=== PATIENT | female | born 1965 | race Caucasian/White ===

== ENCOUNTER → 2016-08-25 | Outpatient (CLI) | payer OTHER ==
[~2016-08-25] MED LIST: FERR1TAB23 PO; OXYC-57 PO; [UNRECOGNIZED DRUG - OTHER] PO
--- NOTE | 2016-08-25 16:25 | MAMMOGRAPHY REPORT ---
BILATERAL DIGITAL DIAGNOSTIC MAMMOGRAM TOMOSYNTHESIS WITH CAD: 08/25/2016 CLINICAL HISTORY: 50-year-old woman with a history of prior benign stereotactic biopsy of a mass in the 6:00 posterior left breast. She presents for follow-up to ensure stability of another circumscr ibed benign-appearing mass more laterally within the left breast, and also of nodularity in the far posterior right breast, along the posterior nipple line on the CC view. TECHNIQUE: Bilateral breast tomosynthesis in addition to standard 2D mammography was performed. A s pot compression right CC 2-D and tomosynthesis image was also obtained. Current study was also eval uated with a Computer Aided Detection (CAD) system. COMPARISON: Comparison is made to exams dated: 02/25/2016 ultrasound, 02/25/2016 mammogram, 6 mammogram, 03/09/2015 mammogram, 03/09/2015 stereotactic biopsy, and 03/01/2015 mammogram - [facility]. BREAST COMPOSITION: The tissue of both breasts is heterogeneously dense, which may obscure small ma sses. FINDINGS: There is a stable metallic biopsy marker associated with a stable circumscribed 10 x 7 mm mass in the 6:00 posterior left breast. A second circumscribed oval 5.2 x 5.9 mm mass in the appro ximate 3:00 middle one third of the left breast has not significantly changed in size dating back to 09/24/2015. No new suspicious mass, architectural distortion or suspicious calcifications are seen in the left breast. There is decreased nodularity in the far posterior right breast on the CC view. This is confirmed b y an additional spot compression view in the area, which includes increased visualization of the pec toralis muscle. Overall, no new suspicious mass, architectural distortion or new suspicious calcifi cations are identified in the right breast. IMPRESSION: ACR-BI-RADS CATEGORY 3: PROBABLY BENIGN 1. Stable size and appearance of benign-appearing circumscribed masses in the left breast. The mas s in the 6:00 axes was previously biopsied and yielded benign pathology. Overall, no mammographic e vidence of malignancy in the left breast. 2. Decreased nodularity in the far posterior right breast, along the posterior nipple line on the C C view, thought to project in the 12:00 axis, without definite mammographic evidence of malignancy i n the right breast. Would recommend bilateral diagnostic mammograms in 6 months to ensure at least 2 years of stability of the circumscribed masses within the left breast and for routine mammography of the right breast. Approximately 10% of breast cancers are not detected with mammography. A negative mammographic repor t should not delay biopsy if a clinically suggestive mass is present. Kerrie Scott M.D. ay/:08/25/2016 12:43:13 Roofing Machine Operator: Shellie BERNAL(R)([place]), [facility] letter sent: Follow Up Recommended 3 BI-RADS Code: ACR-BI-RADS Category 3: Probably Benign
== END | disposition home or self-care (01) ==
LOC: C.MAMM 08:57
PROVIDERS: ATTEND Family Medicine
DX: N63 Unspecified lump in breast (principal); R92.8 Other abnormal and inconclusive findings on diagnostic imaging of breast

== ENCOUNTER → 2016-10-23 | Outpatient (CLI) | payer OTHER ==
[2016-10-23 12:25] LABS: BASO % 1.2 %; COMPLETE YES; EOS % 7.4 %; HEMATOCRIT 29.1 % (37-47); IG% 0.4 %; LYMPH % 28.6 %; MEAN CELL VOLUME 86.6 fL (80-100); MEAN CORPUSCULAR HEMOGLOBIN 27.4 pg (25-34); MEAN CORPUSCULAR HGB CONC 31.6 g/dl (32-36); MEAN PLATELET VOLUME 8.5 fL (7.4-10.4); MONO % 7.5 %; NEUT % 54.9 %; PLATELET COUNT 311 K/uL (130-400); RED BLOOD COUNT 3.36 M/uL (4.2-5.4)
[2016-10-23 13:34] LABS: CHOLESTEROL/HDL RATIO 4.1
== END ==
LOC: C.LABPBG 09:45
PROVIDERS: ATTEND Family Medicine
DX: E78.5 Hyperlipidemia, unspecified (principal); N92.0 Excessive and frequent menstruation with regular cycle

== ENCOUNTER → 2017-02-24 | Outpatient (CLI) | payer OTHER ==
[2017-02-24 17:30] LABS: BASO % 0.5 %; BASO ABS # 0.04 K/uL (0-0.2); COMPLETE YES; EOS % 0.4 %; HEMATOCRIT 37.4 % (37-47); IG% 0.2 %; LYMPH % 16.5 %; LYMPH ABS # 1.39 K/uL (1.2-3.4); MEAN CELL VOLUME 82.7 fL (80-100); MEAN CORPUSCULAR HEMOGLOBIN 27.2 pg (25-34); MEAN CORPUSCULAR HGB CONC 32.9 g/dl (32-36); MONO % 10.5 %; NEUT % 71.9 %; PLATELET COUNT 280 K/uL (130-400); RED BLOOD COUNT 4.52 M/uL (4.2-5.4)
== END | disposition home or self-care (01) ==
LOC: C.LABPBG 12:48
PROVIDERS: ATTEND Family Medicine
DX: D64.9 Anemia, unspecified (principal)

== ENCOUNTER → 2017-02-24 | Outpatient (CLI) | payer OTHER ==
--- NOTE | 2017-02-24 14:24 | MAMMOGRAPHY REPORT ---
BILATERAL DIGITAL DIAGNOSTIC MAMMOGRAM TOMOSYNTHESIS WITH CAD: 02/24/2017 CLINICAL HISTORY: Follow-up of benign-appearing left breast masses, and right breast asymmetry. TECHNIQUE: Breast tomosynthesis in addition to standard 2D mammography was performed. Current study was also evaluated with a Computer Aided Detection (CAD) system. COMPARISON: Comparison is made to exams dated: 08/25/2016 mammogram, 02/25/2016 ultrasound, 6 mammogram, 09/24/2015 ultrasound, 09/24/2015 mammogram, and 03/09/2015 mammogram - [facility]. BREAST COMPOSITION: The tissue of both breasts is heterogeneously dense, which may obscure small mas ses. FINDINGS: There is a stable metallic biopsy marker associated with a benign-appearing circumscribed o anatoliy mass measuring 11 x 5.6 mm. This has not significantly changed in size compared to prior mammogr ams and also yielded benign pathology results. A second round circumscribed mass in the lateral left breast on the CC view has decreased in size, currently measuring 4.9 mm in diameter, confirming cruz gnity. Given the stability of the biopsied mass and benign pathology results this is considered cruz gn as well and no further close follow-up is needed at this time. No other new suspicious mass, foca l area of distortion, suspicious calcifications or asymmetry is seen in the left breast. The mammographic appearance of the right breast is stable compared to prior mammograms. An asymmetry in the far posterior breast along the posterior nipple line on the CC view is decreased in conspicui ty. No new suspicious mass, architectural distortion or cluster of microcalcifications is seen. IMPRESSION: ACR BI-RADS CATEGORY 2: BENIGN There are benign masses in the left breast, one of which was previously biopsied and yielded benign p athology results, and the other of which has decreased in size, confirming benignity. No further bar se follow-up is needed in the left breast. Decreased prominence of an asymmetry in the 12:00 posteri or right breast, also confirming benignity. Overall, there is no mammographic evidence of malignancy bilaterally. Recommend routine screening tomosynthesis mammography in one year. Approximately 10% of breast cancers are not detected with mammography. A negative mammographic report should not delay biopsy if a clinically suggestive mass is present. Kerrie Scott M.D. ay/:02/24/2017 09:42:23 Gas Station Operator: Autumn Anand, [facility] letter sent: Normal 1/2 BI-RADS Code: ACR BI-RADS Category 2: Benign
== END | disposition home or self-care (01) ==
LOC: C.MAMM 09:00
PROVIDERS: ATTEND Family Medicine
DX: N63.0 Unspecified lump in unspecified breast (principal); R92.8 Other abnormal and inconclusive findings on diagnostic imaging of breast

== ENCOUNTER → 2017-03-16 | Outpatient (CLI) | payer OTHER ==
[2017-03-16 17:48] LABS: HEMATOCRIT 33.2 % (37-47); MEAN CELL VOLUME 85.6 fL (80-100); MEAN CORPUSCULAR HEMOGLOBIN 27.6 pg (25-34); MEAN CORPUSCULAR HGB CONC 32.2 g/dl (32-36); MEAN PLATELET VOLUME 8.9 fL (7.4-10.4); PLATELET COUNT 312 K/uL (130-400); RED BLOOD COUNT 3.88 M/uL (4.2-5.4); WHITE BLOOD COUNT 12.78 K/uL (4.8-10.8)
== END | disposition home or self-care (01) ==
LOC: C.LAB1850 15:41
PROVIDERS: ATTEND Obstetrics & Gynecology
DX: N83.9 Noninflammatory disorder of ovary, fallopian tube and broad ligament, unspecified (principal)

== ENCOUNTER → 2017-03-16 | Outpatient (CLI) | payer OTHER | END | disposition home or self-care (01) | LOC: C.PATHSPEC 16:53 | PROVIDERS: ATTEND Obstetrics & Gynecology | DX: N94.89 Other specified conditions associated with female genital organs and menstrual cycle (principal) ==

== ENCOUNTER 2017-04-20 08:38 | Day surgery (SDC) | payer OTHER ==
[2017-03-30 12:50] VITALS: BMI 26.0
--- NOTE | 2017-03-30 13:22 | PAT Medication Instructions ---
Service Date Mar 30, 2017. Current Home Medication List Ferrous Sulfate (Iron), 325 MG PO HS [Shakology], 1 DOSE PO QAM Medication Instructions For Your Scheduled Surgery - Hold the following medications the morning of surgery: [Shakology], 1 DOSE PO QAM - Take the following medications as scheduled the night before surgery: Ferrous Sulfate (Iron), 325 MG PO HS OTHERWISE NOTHING TO EAT OR DRINK AFTER MIDNIGHT If you have any questions please call us at [phone] or [phone] or [phone]
[~2017-04-20] VITALS: Ht 149.9 cm; Wt 57.6 kg
[~2017-04-20 08:38] MED LIST changes: +CEFAZOLIN 2000MG IV PUSH 10 ML IV SCH; +LACTATED RINGER'S 1000ML 1,000 ML IV SCH; -OXYC-57 PO
[2017-04-20] MEDS ORDERED: SCOPOLAMINE 1.5 MG TDSY TD ONE (09:04)
[2017-04-20 09:12] VITALS: BP 135/74; PULSE 76; TEMP 37; O2SAT 99; Ht 149.9 cm; Wt 57.6 kg
[2017-04-20] MEDS ORDERED: ATROPINE SULFATE 0.1 MG/ML 5ML SYR IV PRN (09:30)
[2017-04-20] MEDS ORDERED: EpHEDrine SULFATE INJ 50 MG/ML AMP IV PRN (09:30)
[2017-04-20] MEDS ORDERED: ONDANSETRON INJ 2 MG/ML 2 ML VIAL IV PRN (09:30)
[2017-04-20] MEDS ORDERED: FENTANYL CITRATE INJ 50 MCG/1 ML 2 ML VIAL IV PRN (09:30)
[2017-04-20] MEDS ORDERED: PROMETHAZINE HCL INJ 12.5 MG in SODIUM CHLORIDE 0.9% 50ML 50 ML IV PRN (09:30)
[2017-04-20] MEDS ORDERED: HYDROmorphone INJ 1 MG/ML SYR IV PRN (09:30)
[2017-04-20] MEDS ORDERED: BUPIVACAINE 0.5 % 5 MG/1 ML MPF 30ML VIAL ONE (09:37)
[2017-04-20] MEDS ORDERED: ACETAMINOPHEN 1000 MG/100 ML IV IV ONE (10:00)
[2017-04-20] MEDS ORDERED: LIDOCAINE HCL 2% 2 ML VIAL (20MG/ML) ONE (10:00)
[2017-04-20] MEDS ORDERED: PROPOFOL IV EMULSION 10 MG/ML 20 ML VIAL IV ONE (10:00)
[2017-04-20] MEDS ORDERED: FENTANYL CITRATE INJ 50 MCG/1 ML 2 ML VIAL ONE ×3 (10:01→12:42)
[2017-04-20] MEDS ORDERED: MIDAZOLAM HCL 1 MG/ML 2ML VIAL ONE ×2 (10:01→11:38)
--- NOTE | 2017-04-20 11:00 | History & Physical Bridge Note ---
H&P Re-Evaluation Bridge Note: I have examined the patient, reviewed the History & Physical and in the interval since the performance of the History & Physical I have noted the following changes of clinical significance: No changes noted
--- NOTE | 2017-04-20 11:01 | Discharge Instructions ---
Discharge Instructions Date of Service Apr 20, 2017. Visit Reason for Visit: Endometrial Mass, Right Ovarian Mass Discharge Discharge Diagnosis / Problem: Endometrial and ovarian masses Discharge Goals Goal(s): Specific goals Activity Recommendations Activity Limitations: per Instructions/Follow-up section Anesthesia . Post Anesthesia Instructions: If you have had General Anesthesia or IV Sedation: * Do not drive today. * Resume driving when surgeon permits. * Do not make important decisions or sign legal documents today. * Call surgeon for: 1. Temperature elevations greater than 101 degrees F. 2. Uncontrollable pain. 3. Excessive bleeding. 4. Persistent nausea and vomiting. 5. Medication intolerance (nausea, vomiting or rash). * For nausea and vomiting use only clear liquids such as: tea, soda, bouillon until nausea subsides, then gradually increase diet as tolerated. * If you have any concerns or questions, call your surgeon's office. If physician is unavailable and it is an emergency, call 911 or go to the nearest emergency room. . Instructions / Follow-Up Instructions / Follow-Up ACTIVITY RECOMMENDATIONS: * Rest the first 2-3 days. You should be back to your normal activity levels by day 3. * No heavy lifting for 2 weeks. * No intercourse, tampons or douching for 1-2 weeks. * You may shower the next day. * Do not drive anytime that you are taking narcotic pain medicines. RETURN TO SCHOOL/WORK: * May return to school or work after 2-3 days. DIET: Nausea may occur in the immediate post-operative period. If so, take clear liquids such as tea, bouillon, apple juice until all nausea has subsided, then resume usual diet. MEDICATIONS: Resume previous medications unless instructed otherwise by your surgeon. Ibuprofen 200mg 2-3 tablets every 4-6 hours as needed -- OR -- Aleve 2 tablets every 8-12 hours as needed for post-operative discomfort Medications are over the counter. Tylenol may be used if above medications are contraindicated or not preferred. Medication should be taken with food or milk. Do not take on an empty stomach. SPECIAL CARE INSTRUCTIONS: * Check temperature twice daily for one week. report any elevation over 101 degrees. * You may experience some vagina spotting and/or bleeding. This is normal for 1 -2 weeks and should not be heavier than a normal period. If it is unusual in amount, call your physician. * Post-operative discomfort may consist of a sore throat, a "bloated" feeling and pain in the shoulders. these are normal symptoms, which usually only last for 2-3 days. * Remove band-aids tomorrow and shower. There is no need to replace band-aids unless there is drainage or discomfort. FOLLOW UP VISIT: Call your doctor's office for a post-operative 2 week visit if not already scheduled. ACTIVITY RECOMMENDATIONS: * Avoid tampons, douching, hot tubs, pools, and intercourse until bleeding has stopped. * May shower as usual. * No strenuous activity for 24-48 hours. After 24-48 hours, you may do anything you feel like doing (driving and sports are okay). SPECIAL CARE INSTRUCTIONS: Special Diet: * Mild nausea may occur in the immediate post-operative period. * Take clear liquids such as tea, cola or bouillon until all nausea has subsided; you may then resume your normal diet. Special Care: * Light bleeding and vaginal spotting can last from a few days to 3-4 weeks. Call your doctor if bleeding becomes heavier than the heaviest part of your period. * Check your temperature twice a day for one week. If it goes above 100.4 degrees Fahrenheit (38.0 Celsius), notify your doctor. * Call your doctor's office for an appointment for 6 weeks after your surgery. FOLLOW-UP VISIT: Call your doctor's office for an appointment for 6 weeks after your surgery. Diet Recommendations Recommended Home Diet: resume previous diet Pending Studies Studies pending at discharge: no Medical Emergencies . Who to Call and When: Medical Emergencies: If at any time you feel your situation is an emergency, please call 911 immediately. . Non-Emergent Contact Non-Emergency issues call your: Primary Care Provider . . "Provider Documentation" section prepared by Katalina Miranda. . [place] Drug Monitoring Program Search Results: no issues identified
[2017-04-20] MEDS ORDERED: OXYC-57 PO (11:02)
[2017-04-20] MEDS ORDERED: DEXAMETHASONE SOD INJ 4 MG/ML VIAL ONE (12:11)
[2017-04-20] MEDS ORDERED: ONDANSETRON INJ 2 MG/ML 2 ML VIAL ONE (12:11)
[2017-04-20] MEDS ORDERED: EpHEDrine SULFATE 50MG/5ML SYR ONE (12:11)
[2017-04-20] MEDS ORDERED: KETOROLAC TROMETHAMINE 30 MG/ML VIAL ONE (12:25)
[2017-04-20] MEDS ORDERED: ROCURONIUM BROMIDE 10 MG/ML 5 ML VIAL IV ONE (12:28)
[2017-04-20] MEDS ORDERED: GLYCOPYRROLATE INJ 0.2 MG/ML VIAL ONE (12:43)
[2017-04-20] MEDS ORDERED: NEOSTIGMINE METHYLSULFATE 5 MG/5 ML SYR ONE (12:43)
--- NOTE | 2017-04-20 13:39 | [facility] Post Operative Brief Note ---
Immediate Operative Summary Operative Date Apr 20, 2017. Pre-Operative Diagnosis Abnormal uterine bleeding, polypoid endometrial mass, right ovarian mass. Post-Operative Diagnosis Same as preop. Procedure(s) Performed Laparoscopy, Right Salpingo-Oophorectomy with use of DaVinci, Hysteroscopy, Dilatation and curretage complicated by uterine perforation, and diagnostic laparoscopy. Surgeon Dr. Miranda Technical Manager Surgeon(s) None Estimated Blood Loss 30 ml Findings Pelvic organs: Right ovary grossly dilated. Bilateral tubes, L ovary, and uterus WNL. Tiny white implants on peritoneum likely representing endometriosis. Normal appendix and liver edge with gallbladder tip also visualized. Contents of right ovary suggestive of dermoid (sebum and hair). Endometrial cavity: With multiple polypoid projections filling the cavity and one predominant polyp seen towards the R side. Ostia seen bilaterally. Sound to 9cm. Perforation at end of curettage. Deficit 30cc NSS. Repeat view of pelvis: punctate perforation of uterine fundus towards L posterior. Minimal active bleeding after suction/irrigation and observation. Specimens A: Right tube and ovary. B: Endometrial currettings. Complication(s) Uterine perforation Disposition Recovery Room / PACU
--- NOTE | 2017-04-20 14:07 | Anesthesiology Progress Note ---
Anesthesia Post Op Note Date & Time Apr 20, 2017 at 14:07 Vital Signs Pain Intensity: 3 Vital Signs Past 12 Hours Date Time Temp Pulse Resp B/P (MAP) Pulse Ox O2 Delivery O2 Flow Rate FiO2 04/20/17 14:00 80 15 112/65 100 Room Air 04/20/17 13:50 76 13 115/75 100 Oxymask 10 04/20/17 13:40 85 23 85/75 100 Oxymask 10 04/20/17 13:34 36.4 87 15 123/74 100 Oxymask 10 04/20/17 09:12 37.0 76 18 135/74 (94) 99 Room Air Notes Mental Status: alert / awake / arousable, participated in evaluation Pt Amnestic to Procedure: Yes Nausea / Vomiting: adequately controlled Pain: adequately controlled Airway Patency, RR, SpO2: stable & adequate BP & HR: stable & adequate Hydration State: stable & adequate Anesthetic Complications: no major complications apparent
[2017-04-20 14:18] VITALS: BP 99/63; PULSE 84; TEMP 36.8; O2SAT 95
--- NOTE | 2017-04-20 14:32 | OPERATIVE REPORT ---
DATE OF OPERATION: 04/20/2017 PREOPERATIVE DIAGNOSES: Right ovarian mass, abnormal uterine bleeding and thickened uterine lining. POSTOPERATIVE DIAGNOSES: Same. PROCEDURE: 1. Laparoscopic RSO with da Ginger assist. 2. Hysteroscopy, D&C. 3. Diagnostic laparoscopy. SURGEON: Dr. Miranda. TRACK REPAIRER HELPER: None. ESTIMATED BLOOD LOSS: 30 mL. FINDINGS: Pelvic organs showing the right ovary grossly dilated, bilateral tubes, left ovary and uterus were within normal limits. There were noted to be tiny white implants on the peritoneum, likely representing endometriosis. There was a normal appendix and liver edge also the gallbladder tip was able to be visualized and appeared within normal. The contents of the right ovary were suggestive of dermoid. They were sebum and hair. Endometrial cavity on the D&C portion of the procedure was noted to have ostia visualized with multiple polypoid projections filling the cavity, one predominant polyp larger than the others was seen arising from the right side of the fundus and projecting nearly down to the cervix. Uterine sound to 9 cm depth and perforation at the end of the curettage. Fluid deficit 30 mL of normal saline. Findings on repeat diagnostic laparoscopy, status post perforation of the uterus punctate perforation towards the left posterior fundus with minimal active bleeding. SPECIMENS: Right tube and ovary and endometrial curettings. COMPLICATIONS: Uterine perforation. DISPOSITION: Stable to recovery room. DESCRIPTION: Aide Black is a 51-year-old who was worked up for abnormal uterine bleeding by her primary care and found to have abnormal findings on her ultrasound including a right ovarian mass of about 8 cm in size and fairly homogenous solid appearing contents as well as an endometrial thickening with a questionable mass showing some vascularity. She was brought to the operating room and placed on the operating table in the dorsal lithotomy position, prepped and draped in standard sterile fashion and the laparoscopic portion of the procedure was performed first. Biologic care was working on the clean portion of the procedure first and then moving to the vaginal portion of the procedure second due to higher bacterial contamination. A supraumbilical incision was made and an optical entry was then performed without complication. The abdomen was insufflated with CO2 allowing visualization of the pelvic organs. The patient was placed in steep Trendelenburg and right and left lower quadrant ports were placed under direct visualization. Findings in the pelvis were as described above. The expected right ovarian mass was quite obvious. The robot was docked and using the da Ginger assist, dissection began by creating a peritoneal window around the infundibulopelvic ligament isolating it from the ureter which was clearly seen peristalsing along its course of the pelvic brim down to the most inferior portion near the cervix. The infundibulopelvic ligament was then ligated and sharply divided. The uteroovarian ligament was ligated and divided. The fallopian tube was divided from the cornu and dissection of the remaining peritoneum was then undertaken to allow freeing of the entire right tube and ovary en bloc from the pelvic side wall. This was then placed in the cul-de-sac. Examination revealed that once again, the right ureter was seen peristalsing along its entire pelvic course and good hemostasis was in effect at all sites. The robot was then undocked. A 5 mm scope was introduced through the right lower quadrant port while in an EndoCatch bag was introduced through the umbilicus and a grasper through the left lower quadrant port, which was used to maneuver the tissue sample into the EndoCatch bag, this was then brought out through the umbilicus. While holding the orifice of the bag wide, Julio clamps were used to grasp and retrieve the tissue from inside the bag. The vast majority of what was retrieved with a sebum like material with a black hair. Once this had been sufficiently decompressed, the remaining ovary and tube were able to be removed easily. All this will be sent to pathology. Of note, there was not at any time spillage of the contents intraabdominally. The bag remained intact and tightly approximated at the opening of the skin, such that no backflow of this sebum material was possible into the patient's abdomen. Once the bag was removed, the port was held close while the abdomen reinsufflated and the laparoscope was introduced once more to assure good hemostasis at the working site. This being seen, the patient was desufflated after all ports were removed and closure proceed with a UR-6 at the umbilical site, 4-0 Monocryl at all 3 sites and Dermabond dressing. Attention was then turned to the D&C portion of the case. A weighted speculum was introduced. The anterior lip of the cervix had already previously been grasped with a single-tooth tenaculum and an acorn manipulator was then placed. This had been done at the placement of Seymour prior to the beginning of the case. The acorn manipulator was removed, the single tooth tenaculum remained, the uterus was then gently sounded to 9 cm and serially dilated. Of note, cervical dilation was surprisingly difficult due to the external os of her cervix was the parous. The cervical canal was fairly tight. Dilation proceeded to a 19 Armenian. The 5 mm hysteroscope was then introduced through this opening and as we watched during the insertion, we were able to see the natural cervical channel as well as entrance to the endometrial cavity, which was filled with a polypoid type material. I do feel confident we were in the correct cavity based on seeing ostia. Scope was withdrawn. An attempt was made to introduce polyp forceps; however, there was not enough flexibility of the cervical canal to allow them to be opened, although they were easily inserted, they were therefore not useful. They were then removed. A sharp curet was then introduced. The first pass with the curette retrieved to be a fairly large polyp which was seen to be arising from the fundus. Additional curettage was gently carried out retrieving endometrial curettings. Towards the very end of curettage, I did feel the curette found deeper than the 9 cm previous sounded depth. I immediately retrieved the curette and reintroduced the hysteroscope, which did reveal a fundal perforation. The hysteroscope was then removed. Fluid deficit was noted to be 30 mL of normal saline. Although, I felt confident that the perforation was fairly straight ahead towards the fundus and the risk of heavy bleeding was minimal. In this patient's case the risk of doing a diagnostic laparoscopy approach zero as incisions had already been made. For that reason, I elected to proceed with a diagnostic laparoscopy. Clean gloves, instruments, etc. were retrieved. We then returned to the abdomen where the umbilical incision was reopened using a clean blade, cutting through the Dermabond and the sutures. The optical entry was recreated. The abdomen was reinsufflated and a left lower quadrant port was similarly reopened. A 5 mm trocar was introduced and a blunt probe was introduced in order to elevate the uterus. We were thus able to visualize the left fundal posterior perforation which initially was oozing, but after suction irrigation and observation, it rapidly slowed to the point where bleeding was minimal, if any. Satisfied that this perforation would represent a self-healing injury, all instruments were then removed. The abdomen was allowed to desufflate and the 2 port sites were reclosed identically as before using UR-6, 4-0 Monocryl and Dermabond dressing. All instruments were removed from the vagina as well including the Seymour being removed from the bladder and the patient was then transferred in stable condition to the recovery room. Of note, I went to the waiting room and immediately notified the patient's family of the course of her care including the uterine perforation. They are aware that this is typically a complication that occurs in about 1% of D&Cs and that generally speaking it heals well without further intervention. They are aware that I did look from above and that I do feel that the bleeding from this site was minimal and that the patient will be able to discharge home today without any alterations in her care or ultimately without any change of the expectation of her recovery course. They are aware that I suspect strongly the right ovary is a dermoid; however, final pathology must be awaited. They are additionally aware that will be waiting for pathology from the endometrial curettings and will notify them of all pathology when I have it. I attest to the content of the Intraoperative Record and any orders documented therein. Any exception s are noted below.
[2017-04-20 14:50] VITALS: BP 108/72; PULSE 80; O2SAT 98
[2017-04-20 15:15] VITALS: BP 113/63; PULSE 85; TEMP 36.8; O2SAT 96
== END 2017-04-20 15:50 | disposition home or self-care (01) ==
LOC: C.ACU 08:38
PROVIDERS: ATTEND Obstetrics & Gynecology
DX: D27.0 Benign neoplasm of right ovary (principal); D28.2 Benign neoplasm of uterine tubes and ligaments; N93.9 Abnormal uterine and vaginal bleeding, unspecified; E78.5 Hyperlipidemia, unspecified; Z88.0 Allergy status to penicillin
CPT/HCPCS: 58558; 58720; S2900

== ENCOUNTER 2020-10-01 05:55 | Observation (INO) ==
--- NOTE | 2020-09-26 09:24 | Anesthesiology Consultation ---
Date of Service September 26, 2020 Assessment & Plan (1) Encounter for pre-operative examination: Chart Review Chart Review: Acceptable Risk for Surgery and Patient NOT seen in Pre Admission Testing Per nursing assessment 09/12/20, pt resides in [facility]. Local travel only. No travel out of state. Wears mask in public. No known Covid positive contacts or Covid related symptoms. No known Covid infection in the past 90 days. Covid test 09/25/20= negative [facility] [place] 10/12/17= Done under GA with Grade 1 view with MAC #3. ETT #7 x 1 attempt/atraumatic. History Surgery Operation Date: 10/01/20 10:50 Proposed Procedures p Bilateral Breast Reduction - Elisabeth Adams MD Height/Weight Height: 4 ft 11 in Weight: 59.874 kg Allergies Allergy/AdvReac Type Severity Reaction Status Date / Time chicken derived Allergy Intermediate CHICKEN Verified 09/12/20 09:47 TURKEY-GASTRIC DISTENTION VIOLENTLY ILL egg Allergy Intermediate HICCUPS-WAS Verified 09/12/20 09:47 TESTED AND SHOWED SHE HAD ALLERGY TO EGG PROTEIN Penicillins Allergy Intermediate HIVES Verified 09/12/20 09:47 Medications Home Medications Medication Instructions Recorded Confirmed Last Taken hydrocodone 5 mg-acetaminophen 325 1 tab PO Q4H PRN 3 Days #18 tab 09/10/20 09/12/20 Unknown mg tablet ascorbic acid (vitamin C) [Vitamin 1 g PO QAM 09/12/20 09/12/20 Unknown C] cholecalciferol (vitamin D3) 1,000 unit PO QAM 09/12/20 09/12/20 Unknown [Vitamin D3] Past Medical History Medical History Hyperlipidemia LDL goal <130 Lyme arthritis INFLAMMATION Lyme disease hx of Past Family History Family History Father Prostate cancer Diabetes Hypertension Grandfather Prostate cancer Mother Dementia Cancer lung Hypertension Sister No problems noted. Brother Cancer throat Family history of esophageal cancer Son No problems noted. Daughter Keratoconus of both eyes Other Cancer of kidney No family history of adverse response to anesthesia Denies family history of Ovarian cancer Myocardial infarction Breast cancer Colorectal cancer Past Surgical History Surgical History H/O oophorectomy Right ovary removed for dermoid H/O: hysterectomy [facility] in 2018. Had only her L ovary remaining after this. History of dilatation and curettage History of left breast biopsy benign History of tooth extraction History of wisdom tooth extraction Social History Smoking Status: Never smoker Do You Dip or Chew Tobacco: No Hx Alcohol Use: No Hx Substance Use: No substance use type: does not use Lab Results Anesthesia Preop Results Results Anesthesia Widget: WBC 9.55 K/uL (4.8-10.8) 09/25/20 Hgb 14.8 g/dL (12.0-16.0) 09/25/20 Hct 43.7 % (37-47) 09/25/20 Plt 239 K/uL (130-400) 09/25/20 Na 139 mmol/L (136-145) 09/25/20 K 3.7 mmol/L (3.5-5.1) 09/25/20 Cl 105 mmol/L (98-107) 09/25/20 CO2 29 mmol/L (21-32) 09/25/20 BUN 15 mg/dl (7-18) 09/25/20 Creat 0.76 mg/dl (0.6-1.2) 09/25/20 Glucose Level 81 mg/dl (70-99) 09/25/20 PT 10.2 Seconds (9.0-12.0) 09/25/20 PTT 26.4 Seconds (21.0-31.0) 09/25/20 INR 1.0 (0.9-1.1) 09/25/20 Testing Electrocardiogram Date: 09/25/20 Findings: + NSR @ (64bpm) Normal EKG per cardio.
[2020-10-01] MEDS ORDERED: CLINDAMYCIN 600 MG/54 ML BAG IV SCH (06:00)
[2020-10-01] MEDS ORDERED: LR 15ML/HR IV SCH (06:00)
[2020-10-01] MEDS ORDERED: MIDAZOLAM HCL 1 MG/ML 2ML VIAL ONE (07:01)
[2020-10-01] MEDS ORDERED: fentaNYL citrate 100 MCG/2 ML VIAL ONE ×2 (07:01→08:40)
--- NOTE | 2020-10-01 07:06 | History & Physical Bridge Note ---
Date of Service October 01, 2020 History & Physical Bridge Note I have examined the patient, reviewed the History & Physical and in the interval since the performance of the History & Physical I have noted the following changes of clinical significance: Additional weight loss...now 128 today as per nursing documentation
[2020-10-01] MEDS ORDERED: HYDROmorphone INJ 1 MG/ML SYRINGE IV PRN (07:31)
[2020-10-01] MEDS ORDERED: LABETALOL HCL IV 5 MG/ML 20ML IV PRN (07:31)
[2020-10-01] MEDS ORDERED: fentaNYL citrate 100 MCG/2 ML VIAL IV PRN (07:31)
[2020-10-01] MEDS ORDERED: ONDANSETRON INJ 2 MG/ML 2 ML VIAL IV PRN ×2 (07:31→12:12)
[2020-10-01] MEDS ORDERED: ATROPINE SULFATE 0.1 MG/ML 10ML SYR IV PRN (07:31)
[2020-10-01] MEDS ORDERED: ePHEDrine sulfate 50 MG/ML AMP IV PRN (07:31)
[2020-10-01] MEDS ORDERED: PHENYLEPHRINE 100MCG/ML 5ML SYR IV PRN (07:31)
[2020-10-01] MEDS ORDERED: MEPERIDINE HCL 25 MG/ML CARP/VIAL IV PRN (07:31)
[2020-10-01] MEDS ORDERED: BUPIVACAINE 0.25% 30 ML VIAL ONE (07:32)
[2020-10-01] MEDS ORDERED: LIDOCAINE/EPINEPHRINE 1% 20 ML VIAL ONE (07:32)
[2020-10-01] MEDS ORDERED: ROCURONIUM BROMIDE 10 MG/ML 5 ML VIAL IV ONE ×2 (08:25→08:56)
[2020-10-01] MEDS ORDERED: ONDANSETRON INJ 2 MG/ML 2 ML VIAL ONE (08:25)
[2020-10-01] MEDS ORDERED: LARYING-O-JET KIT (LTA) ONE (08:25)
[2020-10-01] MEDS ORDERED: GLYCOPYRROLATE 0.2 MG/ML VIAL ONE (08:25)
[2020-10-01] MEDS ORDERED: LIDOCAINE HCL 2% 2 ML VIAL/AMP(20MG/ML) INFIL ONE (08:25)
[2020-10-01] MEDS ORDERED: PROPOFOL IV EMULSION 10 MG/ML 20 ML VIAL IV ONE (08:25)
[2020-10-01] MEDS ORDERED: PHENYLEPHRINE 100MCG/ML 5ML SYR ONE (08:25)
[2020-10-01] MEDS ORDERED: NEOSTIGMINE METHYLSULFATE 5 MG/5 ML SYR ONE (08:25)
[2020-10-01] MEDS ORDERED: ePHEDrine sulfate 50 MG/ML SYR ONE (08:25)
[2020-10-01] MEDS ORDERED: ACETAMINOPHEN 1000 MG/100 ML IV IV ONE (09:54)
--- NOTE | 2020-10-01 12:02 | Post Operative Brief Note ---
PG Immediate Post Op with CF Date of Surgery October 01, 2020 Pre & Post Diagnosis Operation Date: 10/01/20 07:30 Pre-Op Diagnosis: Bilateral Symptomatic Macromastia Post-Op Diagnosis: Bilateral Symptomatic Macromastia I identified the patient and participated in the time-out.: Yes Procedure Operation Date: 10/01/20 07:30 Actual Procedures p Bilateral Breast Reduction(Bilateral) - Elisabeth Adams MD Surgeon Elisabeth Adams MD Web Design Instructor Vera Lane PA-C Estimated Blood Loss 50 Findings Consistent with Post-Op Diagnosis Specimens Specimen Description: Fresh Specimen: A.)Left Breast Tissue out of body at: 0905 weight: 390 grams sent out of OR6 to lab by Or aide at 0935. Fresh Specimen: B.) Right Breast Tissue out of body at : 1047 weight : 388 grams sent out of OR6 to lab by OR aide at 1108. Drains Cash-Carpenter Drain (x2)
[2020-10-01] MEDS ORDERED: HYDROCODONE/ACETAMOPHEN 5/325MG TAB PO PRN ×2 (12:12)
[2020-10-01] MEDS ORDERED: MoRPHine SULFATE 2 MG/ML CARP IV PRN (12:12)
[2020-10-01] MEDS ORDERED: LORazepam 0.5 MG TAB PO PRN (12:12)
[2020-10-01] MEDS ORDERED: PROMETHAZINE HCL 12.5 MG in SODIUM CHLORIDE 0.9% 50 ML IV PRN (12:12)
[2020-10-01] MEDS ORDERED: diphenhydrAMINE 50 MG/ML VIAL IV PRN (12:12)
[2020-10-01] MEDS ORDERED: diphenhydrAMINE Capsule 25 MG CAP PO PRN (12:12)
[2020-10-01] MEDS ORDERED: MoRPHine SULFATE 4 MG/ML 1 ML CARP\\VIAL IV PRN (12:12)
--- NOTE | 2020-10-01 12:14 | Operative Report ---
PG Post Operative Report Pre & Post Diagnosis Operation Date: 10/01/20 07:30 Pre-Op Diagnosis: Bilateral Symptomatic Macromastia Post-Op Diagnosis: Bilateral Symptomatic Macromastia I identified the patient and participated in the time-out.: Yes Procedure Operation Date: 10/01/20 07:30 Actual Procedures p Bilateral Breast Reduction(Bilateral) - Elisabeth Adams MD Surgeon Elisabeth Adams MD Derivatives Trader Vera Lane PA-C Estimated Blood Loss 50 Findings Consistent with Post-Op Diagnosis Specimens left breast 390 g, right breast 388 grams to path Drains JPx2 Anesthesia Type General Complications none Disposition Disposition: Recovery Room Indications neck pain, headaches, bilateral shoulder pain, upper back pain, intertrigo due to macromastia Description of Procedure The risks, benefits, and alternatives of the procedure were explained to the patient who agreed and signed consent. She was identified and marked in the preoperative holding area. She was brought to the operating room where she was positioned supine and placed under general anesthesia without incident. Surgical site was prepped and draped sterilely. A time-out procedure was performed. I began with the left side. Markings were reassessed and a 8 cm pedicle was marked. 1% lidocaine with epinephrine was used to anesthetize the planned incisions. A 38 mm cookie cutter was used to circumscribe the nipple-areolar complex. The previously marked 8 cm pedicle was incised using a 15 blade scalpel and deepithelialized. I began with the medial dissection of the pedicle using electrocautery. Cautery was used to incise through dermis and breast parenchyma down to the chest wall, taking care not to undermine the pedicle during dissection. A similar procedure was undertaken on the lateral aspect of the pedicle again taking care not to undermine. Lastly, the pedicle was dissected out superiorly using electrocautery and this was carried down to the chest wall as well. I then began with excision of the medial breast tissue followed by lateral aspect of the breast tissue and surrounding keyhole incision. A 15 blade scalpel was used to make the inframammary fold incision and electrocautery was used to deepen the incision through dermis and breast parenchyma. Dissection was then carried superiorly to the level of the superior incision. Superior incision was then incised using a 15 blade scalpel and again dissected using electrocautery. This was undertaken laterally and then around the keyhole portion of the incision. Care was taken to leave some fat on the lateral pectoralis fascia in order to protect the T4 intercostal nerve. Hemostasis was achieved with electrocautery. The specimen was passed off in its entirety for weighing. Additional resection was undertaken from the superior flap in order to facilitate closure of the breast and to provide the best shape. The total resection weight of the left breast was 390 grams. The wound was irrigated with saline and hemostasis was achieved with electrocautery. 0.25% Marcaine plain was used to anesthetize the incisions as well as the pectoralis fascia. A 15 Upper Sorbian Louie drain was brought out through a separate stab incision. The nipple-areolar complex was brought into the keyhole using 2-0 Vicryl deep dermal suture. The wound was closed first in a lateral to mid breast direction and then medial to mid breast direction using 2-0 Vicryl deep dermal sutures. Vertical limb was also approximated using 2-0 Vicryl deep dermals and the nipple-areolar complex was inset using 2-0 Vicryl deep dermal sutures. Next, the superficial dermal layer was closed using 2-0 PDO running Quill suture along the inframammary fold and 3-0 PDS interrupted dermal sutures along the vertical limb and nipple- areolar complex. Lastly 3-0 Monocryl running subcuticular suture was placed. A similar procedure was undertaken on the right side with maximal excision weight of 388 grams. Breasts were symmetric and nipple-areolar complexes were viable bilaterally following wound closure. Dermabond Prineo was applied along the inframammary fold and vertical limb and Dermabond was placed around the nipple-areolar complex. Dry dressings and a surgical bra were placed. The patient was awakened and transferred to recovery room in satisfactory condition. Vera Lane PA-C was present and scrubbed throughout the procedure and was instrumental in providing retraction during dissection of the pedicle and assisting in wound closure. I attest to the content of the Intraoperative Record and any orders documented therein. Any exceptions are noted below.
--- NOTE | 2020-10-01 12:47 | Anesthesiology Progress Note ---
Date of Service October 01, 2020 Anesthesia Post Procedure Vital Signs Vital Signs: Temp Pulse Pulse Resp BP BP Pulse Ox 10/01/20 12:40 36.0 C L 77 14 110/76 96 10/01/20 12:30 66 14 111/71 98 10/01/20 12:20 80 20 120/77 100 10/01/20 12:14 36.2 C L 93 H 16 133/77 100 10/01/20 06:14 36.5 C 77 18 138/86 100 Pain Intensity Bilateral Breast: Pain Intensity: 2 Transfer of Care Handoff Completed per policy Notes Mental Status: alert / awake / arousable Patient Amnestic to Procedure: Yes Nausea / Vomiting: adequately controlled Pain: adequately controlled Airway Patency, RR, SpO2: stable & adequate BP & HR: stable & adequate Hydration State: stable & adequate Anesthetic Complications: no major complications apparent and Pt Satisfied with anesthetic care
--- NOTE | 2020-10-01 13:14 | Surgery Progress Note ---
Date of Service October 01, 2020 Assessment & Plan (1) S/P bilateral breast reduction: Pain is well-controlled. JOSEFINA drains x [address] with serosang drainage. No evidence of active bleeding. Surgical bra in place. Bilateral nipples are pink and viable. Discharge instructions reviewed with patient. Plan is for discharge in the morning. Subjective Ruthi is s/p Bilateral Breast Reduction. She reports that she is feeling well and pain is controlled. Physical Exam Physical Exam: On exam- surgical bra in place- clean and dry. Bilateral JOSEFINA drains in place with sersang drainage. PACU nurse emptied drains and 1 cc was emptied from left drain and 5 cc was emptied from right drain. No evidence of active bleeding. Bilateral nipples are pink and viable. Dermabond in place. Results & Data ([facility]) Vital Signs (Past 12 Hours) Vital Signs Temp Pulse Pulse Resp BP BP Pulse Ox 10/01/20 13:00 65 14 114/72 99 10/01/20 12:50 60 14 110/67 96 10/01/20 12:40 36.0 C L 77 14 110/76 96 10/01/20 12:30 66 14 111/71 98 10/01/20 12:20 80 20 120/77 100 10/01/20 12:14 36.2 C L 93 H 16 133/77 100 10/01/20 06:14 36.5 C 77 18 138/86 100 PG Care Time/CCT Total # of Minutes Spent Total Time Spent with Patient: Total time spent is greater than 50% in coordination of care (as documented) at patient's floor/unit and/or counseling patient: Coding Level of Care Code None Diagnoses S/P bilateral breast reduction Z98.890
[2020-10-01] MEDS: D5W AND 1/2NSS + 20MEQ KCL 20 MEQ/1,000 ML BAG IV SCH (14:44)
[2020-10-01] MEDS: ACETAMINOPHEN 500 MG TAB PO PRN (15:30)
[2020-10-01] MEDS: CLINDAMYCIN 600 MG in DEXTROSE 5% 50 ML IV SCH (16:20)
[2020-10-02] MEDS: CLINDAMYCIN 600 MG in DEXTROSE 5% 50 ML IV SCH ×2 (00:04→08:09)
[2020-10-02] MEDS: ACETAMINOPHEN 500 MG TAB PO PRN ×2 (00:04→08:09)
[2020-10-02] MEDS: D5W AND 1/2NSS + 20MEQ KCL 20 MEQ/1,000 ML BAG IV SCH (04:02)
--- NOTE | 2020-10-02 08:34 | Surgery Progress Note ---
Date of Service October 02, 2020 Assessment & Plan (1) S/P bilateral breast reduction: Admission and Anticipated Discharge Date Admission Date: S/P bilateral breast reduction- POD #1 1. drains removed 2/ d/c home this AM, office follow-up tomorrow Subjective Patient is resting comfortably in bed. Tolerating a regualr diet. She reports excellent pain control using only Tylenol. She feels ready to go home. Physical Exam Physical Exam: VSS. Drains with 10cc serosang output- removed. nipples pink/viable. no evidence of hematoma. Results & Data ([facility]) Vital Signs (Past 12 Hours) Vital Signs Temp Pulse Resp BP Pulse Ox 10/02/20 03:37 36.9 C 71 14 94/59 L 96 10/01/20 22:32 36.7 C 63 14 90/51 L 95 PG Care Time/CCT Total # of Minutes Spent Total Time Spent with Patient: Total time spent is greater than 50% in coordination of care (as documented) at patient's floor/unit and/or counseling patient: Coding Level of Care Code None Diagnoses S/P bilateral breast reduction Z98.890
[2020-10-02] MEDS ORDERED: MULTIVITAMIN TAB PO SCH (09:00)
--- NOTE | 2020-10-02 14:50 | Discharge Summary ---
Date of Service October 02, 2020 Admission HPI Per Admitting Provider see admission H&P Admission Exam Per Admitting Provider see admission H&P Principal Diagnosis symptomatic macromastia Discharge Exam Constitutional well developed and well nourished; no acute distress Skin + incision (CDI, nipples pink) Discharge Data Allergies Allergy/AdvReac Type Severity Reaction Status Date / Time chicken derived Allergy Intermediate CHICKEN Verified 10/01/20 06:46 TURKEY-GASTRIC DISTENTION VIOLENTLY ILL egg Allergy Intermediate HICCUPS-WAS Verified 10/01/20 06:46 TESTED AND SHOWED SHE HAD ALLERGY TO EGG PROTEIN Penicillins Allergy Intermediate HIVES Verified 10/01/20 06:46 Procedures Performed Operation Date: 10/01/20 07:30 Actual Procedures p Bilateral Breast Reduction(Bilateral) - Elisabeth Adams MD Ordered Studies 10/01/20 05:00 US - OR guided needle placemen Routine Hospital Course (1) S/P bilateral breast reduction: Patient presented to [facility] with history of symptomatic macromastia. She was taken to the OR and underwent bilateral breast reduction. There were no intraoperative complications. She was taken to recovery and transferred to med/surg for observation. On POD#1, she was feeling well. She was tolerating a regular diet and ambulating. On exam, her vitals were stable. Her incisions were CDI and nipples viable. Her drains were removed. She was discharged home with instructions to follow-up in the office in one day. Total Time Total Time Spent Total Time Spent (In Minutes): 15 Total Time Includes: Examination of the Patient, Discharge Planning, Medication Reconciliation and Communication With Other Providers Discharge Plan Discharge Items Patient Disposition: Home - Self-Care Reason For Visit: Macromastia Discharge Diagnosis: s/p bilateral breast reduction Activity: As commented below Non-emergency contact: Surgeon Call non-emergency contact if: your pain is not controlled, you have a fever, your wound has increased redness and your wound has increased drainage Follow-up/Referrals: Elisabeth Adams MD [Physician] - 10/03/20 2:30 pm (OCTOBER 16, 2020 @ 2:15P.M.) Leidy Garcia MD [Primary Care Provider] - Diet: Regular Addtl Attending Provider Instructions: ACTIVITY RECOMMENDATIONS: __Normal activities _x_No bending, lifting or straining. Keep arms at shoulder height or below __No driving __Driving allowed when you are off pain medications _x_Walking permitted __You should have help at home for ___ days DRESSINGS: __No dressings required __xKeep dressings dry/in place until first office visit __Remove dressings ___ and leave dressings off __Apply ice ___ days __Remove dressings and reapply garment __Apply antibiotic ointment (Bacitracin, Neosporin, etc) to wounds 3-4 times/day for 10 days BATHING: x__Keep dressings dry _x_Sponge bathing permitted away from breasts __Showering permitted _x_No swimming, hot tubs or soaking in a tub MEDICATIONS: Resume previous medications unless instructed otherwise by your surgeon. _x_Do not use aspirin, Motrin, Advil or Ibuprofen as these may promote bleeding. Please use Tylenol. _x_Prescription(s) provided: pain medication was provided at your last office visit OTHER INSTRUCTIONS: __Record drain output 2-3 times per day SPECIAL CARE INSTRUCTIONS: * It is normal to have a mild fever after surgery. If your temperature is higher than 101.5 degrees F, please call the office at [phone]. * Constipation is a typical side effect of pain medication. An [id number] stool softener will help relieve this. * Leaking around surgical drains may occur and should not cause concern. Sometimes these drains become clogged. If this happens, remove the bulb and milk the clot out of the tube, then replace the bulb. * Drainage from wounds after liposuction is normal and should be expected. Garments will become soiled. You should protect furniture and bedding. This drainage should mostly subside within 2-3 days. Leave garments in place unless instructed to remove them. * If you have unusual drainage from a wound or are concerned you have an infection or have any questions or concerns, please call the office at [phone]. FOLLOW UP VISIT: If not already scheduled, please call the office, , when you return home after surgery to schedule an appointment to be seen in _1__ days. Pending Studies at Discharge: Yes Studies:: pathology Visit Report Forms: Smoking Cessation Stand-Alone Forms: [employer] [facility], Opioid Pain Management, Work/School Release, Smoking Cessation Medications and DC Order Prescriptions: Continued hydrocodone-acetaminophen 5-325 mg tablet 1 tab PO Q4H PRN (Reason: pain) 3 Days Qty: 18 RF: 0 ascorbic acid (vitamin C) [Vitamin C] 1,000 mg Tablet 1 g PO QAM RF: 0 cholecalciferol (vitamin D3) [Vitamin D3] 25 mcg (1,000 unit) Tablet 1,000 unit PO QAM RF: 0 Discharge Orders: Discharge Order (Routine); Ordered 10/02/20 Ordered By: Shea Saez/Other Patient Handouts: Breast Reduction Surgery, Reduction Breast Dc Admission Data Admit Date/Time: 10/01/20 12:12 Attending Provider: Elisabeth Adams Admit Provider: Elisabeth Adams Primary Care Provider: Leidy Garcia Other Interventions: Discharge Summary Assessment (RN) Last Done: 10/02/20 11:37 Coding Level of Care Code 90032 OBS Care - Discharge Diagnoses S/P bilateral breast reduction Z98.890
== END 2020-10-02 13:15 | disposition home or self-care (01) ==
LOC: ASU 05:55 → 3W 05:55